=== PATIENT | female | born 1965 ===

== ENCOUNTER → 2018-02-25 | Outpatient (CLI) | payer OTHER | LOC: FIMAGING 14:16 | PROVIDERS: ATTEND Family Medicine | DX: Z12.31 Encounter for screening mammogram for malignant neoplasm of breast (principal); Z80.3 Family history of malignant neoplasm of breast; R92.0 Mammographic microcalcification found on diagnostic imaging of breast ==

== ENCOUNTER → 2018-03-08 | Outpatient (CLI) | payer OTHER | LOC: BMCIMAGING 10:20 | PROVIDERS: ATTEND Family Medicine | DX: N63.22 Unspecified lump in the left breast, upper inner quadrant (principal) ==

== ENCOUNTER → 2018-03-18 | Outpatient (CLI) | payer OTHER ==
[~2018-03-18] MED LIST: BUPIVACAINE 0.5% 30 ML SDV ONE; LIDOCAINE 1% 300 MG/30 ML SDV ONE
== END ==
LOC: FIMAGING 07:30
PROVIDERS: ATTEND Family Medicine
PROC: 0HBU3ZX Excision of Left Breast, Percutaneous Approach, Diagnostic (ICD-10-PCS; principal; 2018-03-18)
DX: C50.212 Malignant neoplasm of upper-inner quadrant of left female breast (principal)

== ENCOUNTER → 2018-04-02 | Outpatient (CLI) | payer OTHER ==
[~2018-04-02] MED LIST changes: -BUPIVACAINE 0.5% 30 ML SDV ONE; +GADOBUTROL 10 ML VIAL IVP ONE; -LIDOCAINE 1% 300 MG/30 ML SDV ONE
== END ==
LOC: FIMAGING 07:15
PROVIDERS: ATTEND Surgery
DX: C50.212 Malignant neoplasm of upper-inner quadrant of left female breast (principal)
CPT/HCPCS: A9585; C8908

== ENCOUNTER 2018-04-10 06:31 | Day surgery (SDC) | payer OTHER ==
[2018-04-10] MEDS ORDERED: LIDOCAINE 1% 300 MG/30 ML SDV ONE (07:13)
[2018-04-10] MEDS ORDERED: LR 1,000 ML IV ONE (07:28)
--- NOTE | 2018-04-10 07:56 | PDHPUP ---
History & Physical Update H&P update statement: This history and physical update is based on an assessment of the patient which was completed after admission or registration (within 24 hours), but prior to the surgery/procedure. H&P update: H&P reviewed & patient examined, no change in patient's condition since H&P completed
[2018-04-10] MEDS ORDERED: BUPIVACAINE 0.5% 30 ML SDV ONE (09:23)
--- NOTE | 2018-04-10 09:31 | PDANEPAE ---
ANE History of Present Illness L needle loc breast biopsy, mass excision ANE Past Medical History - Cardiovascular History Hx Hypertension: No Hx Arrhythmias: No Hx Chest Pain: No Hx Coronary Artery / Peripheral Vascular Disease: No Hx CHF / Valvular Disease: No Hx Palpitations: No - Pulmonary History Hx COPD: No Hx Asthma/Reactive Airway Disease: No Hx Recent Upper Respiratory Infection: No Hx Oxygen in Use at Home: No Hx Sleep Apnea: No Sleep Apnea Screening Result - Last Documented: Negative - Neurologic History Hx Cerebrovascular Accident: No Hx Seizures: No Hx Dementia: No - Endocrine History Hx Diabetes: No - Renal History Hx Renal Disorders: No - Liver History Hx Hepatic Disorders: No - Neurological & Psychiatric Hx Hx Neurological and Psychiatric Disorders: No - Cancer History Hx Cancer: No - Congenital Disorder History Hx Congenital Disorders: No - GI History Hx Gastrointestinal Disorders: Yes Gastrointestinal History Comment: CONSTIPATION RECENTLY - Other Health History Other Health History: WEARS READING GLASSES - Chronic Pain History Chronic Pain: No - Surgical History Prior Surgeries: N/A ANE Review of Systems Review of systems is: negative Review of Systems: - Exercise capacity METS (RN): 5 METS ANE Patient History - Allergies Allergies/Adverse Reactions: No Known Allergies Allergy (Verified 04/09/18 17:23) - Home Medications Home medications: home medication list seen and reviewed Home Medications: Metamucil 04/09/18 [Last Taken 04/10/18 05:30] - NPO status NPO Since - Liquids (Date): 04/10/18 NPO Since - Liquids (Time): 05:30 NPO Since - Solids (Date): 04/09/18 NPO Since - Solids (Time): 20:30 - Anes Hx Anes Hx: no prior problems - Smoking Hx Smoking Status: Former smoker - Family Anes Hx Family Anes Hx: none Family Hx Anesthesia Complications: SISTER HAS HAD SOME ISSUES/ SIDE EFFECTS WITH MEDICATIONS-WITH PHENERGAN SHE FELT LIKE SHE WAS ON FIRE ANE Labs/Vital Signs - Vital Signs Vital Signs: reviewed preoperatively; see RN documention for details Blood Pressure: 146/85 Heart Rate: 59 Respiratory Rate: 18 O2 Sat (%): 99 Height: 163.83 cm Weight: 68.039 kg ANE Physical Exam - Airway Neck exam: FROM Mallampati Score: Class 2 Mouth exam: normal dental/mouth exam - Pulmonary Pulmonary: no respiratory distress - Cardiovascular Cardiovascular: regular rate and rhythym - ASA Status ASA Status: I ANE Anesthesia Plan Anesthesia Plan: GA w LMA
[2018-04-10] MEDS ORDERED: MIDAZOLAM 2 MG/2 ML VIAL IVP ONE (09:32)
[2018-04-10] MEDS ORDERED: DEXAMETHASONE 4 MG/ML VIAL ONE (09:42)
[2018-04-10] MEDS ORDERED: LIDOCAINE 2% 100 MG/5 ML SYR ONE (09:42)
[2018-04-10] MEDS ORDERED: fentaNYL 100 MCG/2 ML INJ ONE (09:42)
[2018-04-10] MEDS ORDERED: ONDANSETRON 4 MG/2 ML VIAL ONE (09:42)
[2018-04-10] MEDS ORDERED: PROPOFOL 200 MG/20 ML VIAL ONE ×2 (09:43→09:54)
[2018-04-10] MEDS ORDERED: ceFAZolin 1 GM VIAL ONE ×2 (10:01)
[2018-04-10] MEDS ORDERED: oxyCODONE IR 5 MG TAB PO PRN (10:29)
[2018-04-10] MEDS ORDERED: HYDROmorphONE/DILAUDID 2 MG/ML INJ IVP PRN (10:29)
[2018-04-10] MEDS ORDERED: HYDROCODONE/APAP 5/325 TAB PO PRN (10:29)
[2018-04-10] MEDS ORDERED: fentaNYL 100 MCG/2 ML INJ IVP PRN (10:29)
[2018-04-10] MEDS ORDERED: NALOXONE HCL 0.4 MG/ML INJ IVP PRN (10:29)
[2018-04-10] MEDS ORDERED: MEPERIDINE 25 MG/0.5 ML AMP IVP PRN (10:34)
[2018-04-10] MEDS ORDERED: ACETAMINOPHEN 500 MG TAB PO PRN (10:34)
[2018-04-10] MEDS ORDERED: DEXAMETHASONE 4 MG/ML VIAL IVP PRN (10:34)
[2018-04-10] MEDS ORDERED: PROMETHAZINE HCL 25 MG/ML INJ IVP PRN (10:34)
[2018-04-10] MEDS ORDERED: ONDANSETRON 4 MG/2 ML VIAL IVP PRN (10:34)
--- NOTE | 2018-04-10 10:36 | POSTANESTH ---
Post Anesthetic Evaluation Cardiovascular Status: Normal, Stable, Similar to Pre-Op Cond Respiratory Status: Normal, Stable, Similar to Pre-op Cond. Level of Consciousness/Mental Status: Can Participate in Eval, Mildly Sleepy, Arousable Pain Control: Adequate, Prn Tx Ordered Nausea/Vomiting Control: Adequate, Prn Tx Ordered Complications Possibly Related to Anesthesia: None Noted
--- NOTE | 2018-04-10 10:41 | POSTOPPROG ---
Post Op Note Date of Operation: 04/10/18 Surgeon: Mayte Presley Jewelry Technician: tamanna Anesthesiologist: rahul Anesthesia: GET(General Endotracheal), LMA Pre-op Diagnosis: L UI breast ca Post-op Diagnosis: same Indication: 52 year with jayla breast ca Procedure: L needle loc lumpectomyL sln Findings: clip in specimen Inf/Abcess present in the surg proc area at time of surgery?: No EBL: Minimal Specimen(s): lumpectomy, sln, margins
--- NOTE | 2018-04-10 11:01 | GOP ---
[f rep st] OPERATIVE REPORT DATE OF OPERATION: 04/10/2018 SURGEON: Mayte Presley MD WAREHOUSE RECEIVING CLERK: Karen Motley, DOMINIQUE ANESTHESIA: General. 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 PROCEDURE PERFORMED: Left needle localized lumpectomy, left sentinel lymph node. FINDINGS: Clip and wire contained within the specimen. SPECIMENS: Left lumpectomy, left additional margins, left sentinel lymph node. ESTIMATED BLOOD LOSS: 10 cc. INDICATIONS: The patient is a 52-year-old woman who was diagnosed with left breast upper inner breas t cancer. DESCRIPTION OF PROCEDURE: Patient was brought into the operating room, placed supine on the table. General anesthesia was administered. Her left axilla and breast were prepped and draped in the usual sterile fashion. I infiltrated all sites with 0.5% Marcaine prior to making incisions. I made an incision along her areolar border. I created a superior skin flap and I brought the wire d own into the field I excised the tissue and marked green anterior, red superior, yellow medial, blue inferior, orange lateral, black posterior. This was passed off the field. Clip and wire were contai shani within the specimen. I took an additional superior margin inked red, medial margin inked yellow, inferior margin inked blue, lateral margin inked orange, posterior margin inked black. These were s ubmitted to Pathology for permanent. Clips placed in the lumpectomy cavity. Hemostasis achieved. D eep layer closed with 0 Vicryl, followed by 4-0 Monocryl. I made an incision beneath the hair-bearing portion of her left axilla. I dissected down through the skin and subcutaneous space. I broke into the axillary space. I used the gamma probe to identify t he sentinel lymph node. This measured 1500 ex vivo. The background was around 500. There was no ob vious lymphadenopathy. Hemostasis achieved. This wound was closed with 3-0 Vicryl, followed by 4-0 Monocryl. Both wounds were dressed with Mastisol, Steri-Strips, and sterile dressings. She was awak ened in the operating room, extubated, transferred to PACU in stable condition. /[id number]/MODL
[2018-04-10] MEDS ORDERED: HYDROCODONE/APAP 5/325 TAB ONE (11:16)
[2018-04-10 12:35] VITALS: BP 131/51
== END 2018-04-10 12:24 | disposition home or self-care (01) ==
LOC: FSGY 06:31
PROVIDERS: ATTEND Surgery
PROC: 07B60ZX Excision of Left Axillary Lymphatic, Open Approach, Diagnostic (ICD-10-PCS; principal; 2018-04-10 09:45)
PROC: 0HBU0ZZ Excision of Left Breast, Open Approach (ICD-10-PCS; principal; 2018-04-10 09:45)
PROC: 0HHU3YZ Insertion of Other Device into Left Breast, Percutaneous Approach (ICD-10-PCS; 2018-04-10 09:45)
PROC: 3E0W3HZ Introduction of Radioactive Substance into Lymphatics, Percutaneous Approach (ICD-10-PCS; 2018-04-10 09:45)
DX: C50.412 Malignant neoplasm of upper-outer quadrant of left female breast (principal); Z17.0 Estrogen receptor positive status [ER+]; Z87.891 Personal history of nicotine dependence; Z80.3 Family history of malignant neoplasm of breast
CPT/HCPCS: 19125; 19281; 38500; 76098; 78195; A9520; J0690; J1100; J2001; J2250; J2405; J2704; J3010